=== PATIENT | male | born 1980 | race Caucasian/White ===

== ENCOUNTER → 2018-11-03 | Outpatient (CLI) | payer OTHER ==
--- NOTE | 2018-11-03 11:01 | EXE ---
[facility] [address] [address] STRESS ECHOCARDIOGRAM Name: BERTA BAZAN Room #: REG CL [facility]#: [id number] ������������� Admission: 11/03/18 ������������� Attend Phys: Jabari Pool Discharge: ��� ������������� ��� Date of : [birth year] Date of Service: 11/03/18 1100 �� Report #: [id number] �������� ��������������������������������������������[id number] THIS REPORT FOR: //name// APPROVED REPORT Study performed: 11/03/2018 08:30:02 Exam: Stress Echocardiogram Indication: Chest pain Patient Location: Out-Patient Stress Nurse: Lila Jackson RN Room #: Echo lab 2 Status: routine Ht: 5 ft 10 in HR: 71 bpm BP: 118/80 mmHg Rhythm: NSR Medical History Exercise History: Physically active Procedure The patient underwent an Exercise Stress Test using the Sterling Protocol. Blood pressure, heart rate, and EKG were monitored. An Echocardiogram was performed by industrial hygiene technician in four stages in quad fashion. At peak stress, four selected images were obtained and placed side by side with resting images for comparison. Stress Test Details Stress Test: Exercise stress testing was performed using a modified Sterling protocol. HR Resting HR: 71 bpm Max Heart Rate (APMHR): 193 bpm Max HR Achieved: 176 bpm Target HR (85% APMHR): 164 bpm % of APMHR: 91 Recovery HR: 94 bpm HR response to stress: Normal HR response to stress BP Resting BP: 118/80 mmHg Max BP: 162/84 mmHg Recovery BP: 102/60 mmHg BP response to stress: Normal blood pressure response to stress. ECG [facility] [address] [place] [address] STRESS ECHOCARDIOGRAM Name: BERTA BAZAN Room #: REG CL [facility].#: [id number] ������������� Admission: 11/03/18 ������������� Attend Phys: Jabari Pool Discharge: ��� ������������� ��� Date of : [birth year] Date of Service: 11/03/18 1100 �� Report #: [id number] �������� ��������������������������������������������[id number] Resting ECG: Sinus Rhythm Stress ECG: Sinus Tachycardia ST Change: Normal Arrhythmia: None Recovery ECG: Sinus Rhythm Clinical Reason for Termination: Maximal effort Exercise duration: 14 min 58 sec Highest Stage Achieved: Stage 5: 5.0 mph at 18% grade. Exercise capacity: 17.5 METs Overall Exercise Capacity for Age: Good Stress ECG Conclusion 1. Subjectively negative for ischemia 2. Elective cardiographic C negative for ischemia 3. Excellent functional capacity Pre-Stress Echo The resting Echocardiogram showed normal left ventricular contractility with an estimated Ejection Fraction of about >55%. The resting echocardiogram demonstrated normal wall motion in all wall segments. Post-Stress Echo The stress Echocardiogram showed normal left ventricular contractility with an estimated Ejection Fraction of about >70%. Compared to rest, there were no stress-induced wall motion abnormalities. Conclusion Clinical Response: Non-ischemic Exercise Capacity: Superior Stress ECG Response: Non-ischemic Stress Echo Images: Non-ischemic 1. Low risk study No prior study available for comparison. Other Information Study Quality: [facility] [address] [place] [address] STRESS ECHOCARDIOGRAM Name: BERTA BAZAN Room #: REG CL R.#: [id number] ������������� Admission: 11/03/18 ������������� Attend Phys: Jabari Pool Discharge: ��� ������������� ��� Date of : [birth year] Date of Service: 11/03/18 1100 �� Report #: [id number] �������� ��������������������������������������������[id number] <Conclusion> 1. Low risk study ��������������������������������������������� <ELECTRONICALLY SIGNED> ���������������������������������������� By: Emile Bravo MD ��������������������������������������������� 11/03/18 1100 1100 1100 Emile Bravo MD /INF
== END ==
LOC: CV 07:53 → EDBD 07:53
DX: R07.9 Chest pain, unspecified (principal); R53.83 Other fatigue